=== PATIENT | female | born 1985 | race Hispanic/Latino ===

== ENCOUNTER 2021-07-23 22:35 | Emergency (ER) | payer SELFPAY ==
[~2021-07-23] VITALS: Ht 154.9 cm; Wt 70.8 kg
[2021-07-23] MEDS ORDERED: KETOROLAC TROMETHAMINE 30 MG/ML VIAL IV STA (23:17)
[2021-07-23] MEDS ORDERED: ONDANSETRON HCL INJ 2MG/ML 2ML 2 MG/ML VIAL IV STA (23:17)
[2021-07-23] MEDS ORDERED: SODIUM CHLORIDE 0.9% 1000ML 1,000 ML IV SCH (23:30)
[2021-07-23] MEDS ORDERED: IOPAMIDOL 370 MG/ML 200 ML INFUS..BTL INJ ONE (23:48)
[2021-07-23] MEDS ORDERED: SODIUM CHLORIDE 0.9% 50ML 50 ML ONE (23:48)
[2021-07-23] MEDS ORDERED: KETOROLAC TROMETHAMINE 30 MG/ML VIAL ONE (23:51)
[2021-07-23] MEDS ORDERED: SODIUM CHLORIDE 0.9% 1000ML 1,000 ML ONE (23:51)
[2021-07-23] MEDS ORDERED: ONDANSETRON HCL INJ 2MG/ML 2ML 2 MG/ML VIAL ONE (23:51)
[2021-07-24] MEDS ORDERED: LEVOFLOXACIN750 MG PO (01:28)
[2021-07-24] MEDS ORDERED: IBUPROFEN600 MG PO (01:29)
[2021-07-24] MEDS ORDERED: ONDANSETRON ODT4 MG PO (01:32)
== END 2021-07-24 01:45 | disposition home or self-care (01) ==
LOC: FSED 22:40
DX: J18.9 Pneumonia, unspecified organism (principal); R10.31 Right lower quadrant pain; D64.9 Anemia, unspecified; R11.0 Nausea; R19.7 Diarrhea, unspecified; Z86.16 Personal history of COVID-19
CPT/HCPCS: 74177; 80053; 85025; 99284; J1885; J2405; J7030; Q9967

== ENCOUNTER 2021-08-19 14:52 | Emergency (ER) | payer SELFPAY ==
[~2021-08-19] VITALS: Ht 157.5 cm; Wt 70.6 kg
[~2021-08-19 14:52] MED LIST: IBUPROFEN600 MG PO; LEVOFLOXACIN750 MG PO; ONDANSETRON ODT4 MG PO
[2021-08-19] MEDS ORDERED: PREDNISONE 20 MG TAB PO STA (15:01)
[2021-08-19] MEDS ORDERED: EPINEPHRINE HCL 1:1000 1ML 1 MG/ML AMP INJ STA (15:01)
[2021-08-19] MEDS ORDERED: FAMOTIDINE 20 MG TAB PO ONE (15:15)
[2021-08-19] MEDS ORDERED: PREDNISONE 20 MG TAB ONE (15:20)
[2021-08-19] MEDS ORDERED: EPINEPHRINE HCL 1:1000 1ML 1 MG/ML AMP ONE (15:20)
[2021-08-19] MEDS ORDERED: FAMOTIDINE 20 MG TAB ONE (15:20)
[2021-08-19] MEDS ORDERED: FAMOTIDINE 20 MG/2 ML VIAL IV STA (15:48)
[2021-08-19] MEDS ORDERED: ONDANSETRON HCL INJ 2MG/ML 2ML 2 MG/ML VIAL IV STA (15:48)
[2021-08-19] MEDS ORDERED: SODIUM CHLORIDE 0.9% 1000ML 1,000 ML IV STA (15:48)
[2021-08-19] MEDS ORDERED: KETOROLAC TROMETHAMINE 30 MG/ML VIAL ONE (15:58)
[2021-08-19] MEDS ORDERED: SODIUM CHLORIDE 0.9% 1000ML 1,000 ML ONE (15:59)
[2021-08-19] MEDS ORDERED: IOPAMIDOL 370 MG/ML 200 ML INFUS..BTL INJ ONE (16:02)
[2021-08-19] MEDS ORDERED: SODIUM CHLORIDE 0.9% 50ML 50 ML ONE (16:02)
[2021-08-19] MEDS ORDERED: PREDNISONE50 MG PO (17:10)
[2021-08-19] MEDS ORDERED: EPINEPHRIN0.3 MG/0.3 IM (17:10)
[2021-08-19] MEDS ORDERED: PEPCID20 MG PO (17:10)
== END 2021-08-19 17:33 | disposition home or self-care (01) ==
LOC: FSED 14:55
DX: T78.40XA Allergy, unspecified, initial encounter (principal); R10.31 Right lower quadrant pain
CPT/HCPCS: 74177; 80053; 81003; 81025; 85025; 96372; 96374; 96375; 99284; J0171; J1885; J2405; J7030; J7512; Q9967

== ENCOUNTER 2022-09-12 07:21 | Emergency (ER) | payer OTHER ==
[~2022-09-12] VITALS: Ht 157.5 cm; Wt 70.3 kg
[~2022-09-12 07:21] MED LIST changes: +EPINEPHRIN0.3 MG/0.3 IM; +PEPCID20 MG PO; +PREDNISONE50 MG PO
[2022-09-12] MEDS ORDERED: SODIUM CHLORIDE 0.9% 1000ML 1,000 ML IV STA (07:29)
[2022-09-12 07:45] LABS: BASOPHILS % 0.4 % (0.0-1.0); EOSINOPHILS # (AUTO) 0.1 (0.0-0.4); EOSINOPHILS % 1.1 % (0.0-6.0); HEMATOCRIT 37.1 % (34.2-44.1); HEMOGLOBIN 11.3 g/dL (12.0-16.0); LYMPHOCYTES # (AUTO) 3.3 (1.0-3.2); LYMPHOCYTES % 32.1 % (18.0-39.1); MEAN CORPUSCULAR HEMOGLOBIN 23.6 pg (28-32); MEAN CORPUSCULAR HGB CONC 30.5 g/dL (31-35); MEAN CORPUSCULAR VOLUME 77.6 fL (81-99); MONOCYTES # (AUTO) 0.9 (0.2-0.8); MONOCYTES % 9.1 % (4.4-11.3); NEUTROPHILS # (AUTO) 5.8 (2.1-6.9); PLATELET COUNT 349 x10e3/uL (140-360); RED BLOOD COUNT 4.78 x10e6/uL (3.6-5.1); RED CELL DISTRIBUTION WIDTH 15.9 % (11.7-14.4)
[2022-09-12] MEDS ORDERED: Morphine 4mg INJECTION 4 MG/ML INJ IV STA (08:15)
[2022-09-12] MEDS ORDERED: ONDANSETRON HCL INJ 2MG/ML 2ML 2 MG/ML VIAL IV STA (08:15)
[2022-09-12 08:19] LABS: ALBUMIN 4.2 g/dL (3.5-5.0); ALBUMIN/GLOBULIN RATIO 1.2 (0.8-2.0); ANION GAP 15.4 mmol/L (8-16); CALCIUM 8.7 mg/dL (8.4-10.2); CREATININE, SERUM 0.8 mg/dL (0.57-1.11); POTASSIUM 3.4 mmol/L (3.5-5.1)
[2022-09-12 08:30] LABS: AMPHETAMINES SCREEN,URINE NEGATIVE (NEGATIVE); BENZODIAZEPINES SCREEN,URINE NEGATIVE (NEGATIVE); PHENCYCLIDINE SCREEN,URINE NEGATIVE (NEGATIVE)
[2022-09-12 08:31] LABS: CLARITY,URINE TURBID (CLEAR); COLOR,URINE YELLOW (YELLOW); KETONES,URINE TRACE (NEGATIVE); LEUKOCYTE ESTERASE ,URINE NEGATIVE (NEGATIVE); NITRITE,URINE NEGATIVE (NEGATIVE); PROTEIN,URINE DIPSTICK 1+ (NEGATIVE)
[2022-09-12 08:32] LABS: URINE UROBILINOGEN 0.2 mg/dL (0.2 - 1)
[2022-09-12 08:35] LABS: BACTERIA,URINE FEW /HPF; EPITHELIAL CELLS,URINE FEW /LPF; MUCUS,URINE MODERATE (RARE)
[2022-09-12] MEDS ORDERED: IOPAMIDOL 370 MG/ML 100 ML INFUS..BTL INJ ONE ×2 (08:51→10:13)
[2022-09-12] MEDS ORDERED: ACETAMINOPHEN-1 EAC4 PO (10:37)
== END 2022-09-12 10:56 | disposition home or self-care (01) ==
LOC: ER 07:26
DX: R10.30 Lower abdominal pain, unspecified (principal); N83.201 Unspecified ovarian cyst, right side
CPT/HCPCS: 36415; 74177; 80053; 80307; 80320; 81001; 81025; 85025; 99284; J2270; J2405; J7030; Q9967

== ENCOUNTER 2022-12-29 22:31 | Emergency (ER) | payer OTHER ==
[~2022-12-29] VITALS: Ht 157.5 cm; Wt 70.3 kg
[~2022-12-29 22:31] MED LIST changes: +ACETAMINOPHEN-1 EAC4 PO
[2022-12-29] MEDS ORDERED: MEDROL4 M2 PO (23:56)
[2022-12-30] MEDS ORDERED: FAMOTIDINE 20 MG/2 ML VIAL IV STA (00:01)
[2022-12-30] MEDS ORDERED: METHYLPREDNISOLONE SOD SUCC 125 MG/2ML VIAL ONE (00:05)
[2022-12-30] MEDS ORDERED: FAMOTIDINE 20 MG/2 ML VIAL IV ONE (00:06)
[2022-12-30] MEDS ORDERED: METHYLPREDNISOLONE SOD SUCC 125 MG/2ML VIAL IV ONE (00:15)
== END 2022-12-30 01:13 | disposition home or self-care (01) ==
LOC: ER 22:50
DX: R60.9 Edema, unspecified (principal); T78.40XA Allergy, unspecified, initial encounter
CPT/HCPCS: 99283; J2930

== ENCOUNTER 2023-01-20 08:46 | Emergency (ER) | payer OTHER ==
[~2023-01-20] VITALS: Ht 157.5 cm; Wt 70.3 kg
[~2023-01-20 08:46] MED LIST changes: +MEDROL4 M2 PO
[2023-01-20] MEDS ORDERED: SODIUM CHLORIDE 0.9% 1000ML 1,000 ML IV STA (09:05)
[2023-01-20] MEDS ORDERED: KETOROLAC TROMETHAMINE 30 MG/ML VIAL IV STA (09:07)
[2023-01-20] MEDS ORDERED: FENTANYL CITRATE/PF 100MCG/2 ML INJ IV PRN (09:15)
[2023-01-20] MEDS ORDERED: ONDANSETRON HCL INJ 2MG/ML 2ML 2 MG/ML VIAL IV PRN (09:15)
[2023-01-20 09:26] LABS: BASOPHILS % 0.4 % (0.0-1.0); EOSINOPHILS # (AUTO) 0.2 (0.0-0.4); EOSINOPHILS % 1.8 % (0.0-6.0); HEMATOCRIT 33.6 % (34.2-44.1); HEMOGLOBIN 9.9 g/dL (12.0-16.0); LYMPHOCYTES # (AUTO) 2.5 (1.0-3.2); LYMPHOCYTES % 25.8 % (18.0-39.1); MEAN CORPUSCULAR HEMOGLOBIN 21.1 pg (28-32); MEAN CORPUSCULAR HGB CONC 29.5 g/dL (31-35); MEAN CORPUSCULAR VOLUME 71.5 fL (81-99); MONOCYTES # (AUTO) 0.9 (0.2-0.8); NEUTROPHILS # (AUTO) 6.1 (2.1-6.9); NEUTROPHILS % 62.7 % (38.7-80.0); PLATELET COUNT 380 x10e3/uL (140-360); RED CELL DISTRIBUTION WIDTH 18.3 % (11.7-14.4)
[2023-01-20 09:44] LABS: CLARITY,URINE CLEAR (CLEAR); COLOR,URINE YELLOW (YELLOW); KETONES,URINE NEGATIVE (NEGATIVE); LEUKOCYTE ESTERASE ,URINE NEGATIVE (NEGATIVE); NITRITE,URINE NEGATIVE (NEGATIVE); PROTEIN,URINE DIPSTICK NEGATIVE (NEGATIVE)
[2023-01-20 09:45] LABS: URINE UROBILINOGEN 1 mg/dL (0.2 - 1)
[2023-01-20 09:49] LABS: ALBUMIN 3.7 g/dL (3.5-5.0); ALBUMIN/GLOBULIN RATIO 0.9 (0.8-2.0); ANION GAP 13.2 mmol/L (8-16); CALCIUM 9.1 mg/dL (8.4-10.2); CREATININE, SERUM 0.83 mg/dL (0.57-1.11); POTASSIUM 3.2 mmol/L (3.5-5.1)
[2023-01-20 09:50] LABS: BACTERIA,URINE FEW /HPF; EPITHELIAL CELLS,URINE MODERATE /LPF; RBC,URINE 21-50 /HPF (0-5); WBC,URINE (MAN) 0-5 /HPF (0-5)
[2023-01-20] MEDS ORDERED: IOPAMIDOL 370 MG/ML 100 ML INFUS..BTL INJ ONE (10:50)
[2023-01-20] MEDS ORDERED: ULTRAM 50MG50 MG PO (11:49)
== END 2023-01-20 12:14 | disposition home or self-care (01) ==
LOC: ER 08:53
DX: R10.30 Lower abdominal pain, unspecified (principal); N70.11 Chronic salpingitis
CPT/HCPCS: 36415; 74177; 80053; 81001; 83690; 84702; 85025; 99284; J1885; J7030; Q9967

== ENCOUNTER 2024-08-22 10:19 | Emergency (ER) | payer BC, OTHER ==
[~2024-08-22] VITALS: Ht 157.5 cm; Wt 70.3 kg
[~2024-08-22 10:19] MED LIST changes: +ULTRAM 50MG50 MG PO
[2024-08-22 10:57] LABS: BASOPHILS % 0.4 % (0.0-1.0); EOSINOPHILS # (AUTO) 0.1 (0.0-0.4); EOSINOPHILS % 1.2 % (0.0-6.0); HEMATOCRIT 34.4 % (34.2-44.1); HEMOGLOBIN 9.6 g/dL (12.0-16.0); LYMPHOCYTES # (AUTO) 1.8 (1.0-3.2); LYMPHOCYTES % 24.9 % (18.0-39.1); MEAN CORPUSCULAR HEMOGLOBIN 18.3 pg (28-32); MEAN CORPUSCULAR HGB CONC 27.9 g/dL (31-35); MEAN CORPUSCULAR VOLUME 65.6 fL (81-99); MONOCYTES # (AUTO) 0.6 (0.2-0.8); MONOCYTES % 8.2 % (4.4-11.3); NEUTROPHILS # (AUTO) 4.7 (2.1-6.9); NEUTROPHILS % 65.2 % (38.7-80.0); PLATELET COUNT 402 x10e3/uL (140-360); RED BLOOD COUNT 5.24 x10e6/uL (3.6-5.1); RED CELL DISTRIBUTION WIDTH 20.8 % (11.7-14.4); WHITE BLOOD COUNT 7.22 x10e3/uL (4.8-10.8)
[2024-08-22] MEDS: ONDANSETRON HCL INJ 2MG/ML 2ML 2 MG/ML VIAL IV STA (10:59)
[2024-08-22] MEDS: SODIUM CHLORIDE 0.9% 1000ML 1,000 ML IV ONE (11:00)
[2024-08-22 11:22] LABS: ALBUMIN 4.1 g/dL (3.5-5.0); ALBUMIN/GLOBULIN RATIO 1.2 (0.8-2.0); ANION GAP 10.9 mmol/L (8-16); BILIRUBIN,TOTAL 0.3 mg/dL (0.2-1.2); CALCIUM 9.2 mg/dL (8.4-10.2); CREATININE, SERUM 0.78 mg/dL (0.57-1.11); POTASSIUM 3.9 mmol/L (3.5-5.1); TOTAL PROTEIN 7.6 g/dL (6.5-8.1)
[2024-08-22 13:58] VITALS: PULSE 55; RESP 16; TEMP 98.2; O2SAT 100
== END 2024-08-22 14:13 | disposition home or self-care (01) ==
LOC: ER 10:26
DX: R42 Dizziness and giddiness (principal); D64.9 Anemia, unspecified; R94.31 Abnormal electrocardiogram [ECG] [EKG]
CPT/HCPCS: 36415; 80053; 84702; 85025; 93005; 99283; J2405; J7030

== ENCOUNTER 2024-10-07 21:47 | Emergency (ER) | payer BC ==
[~2024-10-07] VITALS: Ht 157.5 cm; Wt 70.3 kg
[2024-10-07] MEDS ORDERED: Sodium Chloride 0.9% 50ML Bag ONE (22:01)
[2024-10-07] MEDS ORDERED: IOPAMIDOL 370 MG/ML 100 ML INFUS..BTL INJ ONE (22:01)
[2024-10-07 22:21] LABS: BASOPHILS % 0.5 % (0.0-1.0); EOSINOPHILS # (AUTO) 0.2 (0.0-0.4); EOSINOPHILS % 2.4 % (0.0-6.0); HEMATOCRIT 37.9 % (34.2-44.1); HEMOGLOBIN 11.8 g/dL (12.0-16.0); LYMPHOCYTES # (AUTO) 3.1 (1.0-3.2); MEAN CORPUSCULAR HEMOGLOBIN 24.2 pg (28-32); MEAN CORPUSCULAR HGB CONC 31.1 g/dL (31-35); MEAN CORPUSCULAR VOLUME 77.8 fL (81-99); MONOCYTES # (AUTO) 0.8 (0.2-0.8); MONOCYTES % 9.2 % (4.4-11.3); NEUTROPHILS # (AUTO) 4.7 (2.1-6.9); NEUTROPHILS % 52.7 % (38.7-80.0); PLATELET COUNT 310 x10e3/uL (140-360); RED BLOOD COUNT 4.87 x10e6/uL (3.6-5.1); WHITE BLOOD COUNT 8.88 x10e3/uL (4.8-10.8)
[2024-10-07 22:34] LABS: AMPHETAMINES SCREEN,URINE NEGATIVE (NEGATIVE); BENZODIAZEPINES SCREEN,URINE NEGATIVE (NEGATIVE); CANNABINOIDS SCREEN,URINE NEGATIVE (NEGATIVE); COCAINE SCREEN,URINE NEGATIVE (NEGATIVE); METHADONE SCREEN, URINE NEGATIVE (NEGATIVE); OPIATES SCREEN,URINE NEGATIVE (NEGATIVE); PHENCYCLIDINE SCREEN,URINE NEGATIVE (NEGATIVE)
[2024-10-07 22:35] LABS: PREGNANCY TEST, URINE NEGATIVE (NEGATIVE)
[2024-10-07 22:38] LABS: ALANINE AMINOTRANSFERASE 21 IU/L (0-55); ALBUMIN 4.1 g/dL (3.5-5.0); ALBUMIN/GLOBULIN RATIO 1.3 (0.8-2.0); ALKALINE PHOSPHATASE 61 IU/L (40-150); ANION GAP 13.4 mmol/L (8-16); BILIRUBIN,TOTAL 0.1 mg/dL (0.2-1.2); BLOOD UREA NITROGEN 14 mg/dL (7-26); BUN/CREATININE RATIO 17 (6-25); CALCIUM 9.5 mg/dL (8.4-10.2); CARBON DIOXIDE 24 mmol/L (22-29); CHLORIDE 104 mmol/L (98-107); CREATINE KINASE 51 IU/L (29-168); CREATININE, SERUM 0.84 mg/dL (0.57-1.11); EST GLOMERULAR FILTRATION RATE 92 ML/MIN (>=60); GLUCOSE 97 mg/dL (74-118); SODIUM 138 mmol/L (136-145); TOTAL PROTEIN 7.3 g/dL (6.5-8.1)
[2024-10-07 22:39] LABS: POTASSIUM 3.4 mmol/L (3.5-5.1)
[2024-10-07] MEDS: TRAMADOL HCL 50 MG TAB PO STA (22:48)
[2024-10-07 22:54] LABS: TROPONIN I < 0.001 ng/mL (0-0.300)
[2024-10-08 01:15] VITALS: PULSE 56; RESP 16; TEMP 98.5; O2SAT 98
== END 2024-10-08 01:23 | disposition home or self-care (01) ==
LOC: ER 21:54
DX: R00.2 Palpitations (principal); R07.89 Other chest pain
CPT/HCPCS: 36415; 71260; 80053; 80307; 81025; 82550; 83690; 83880; 84484; 85025; 99284; Q9967; 93005

== ENCOUNTER 2025-06-06 15:17 | Emergency (ER) | payer SELFPAY ==
[~2025-06-06] VITALS: Ht 160 cm; Wt 70.3 kg
[~2025-06-06 15:17] MED LIST changes: +AMOX TR-K CLV1 EAC2 PO; +DICYCLOMINE HCL20 MG PO
[2025-06-06 16:13] VITALS: TEMP 98
[2025-06-06] MEDS ORDERED: TRUVADA 200 MG1 EACH PO (22:55)
[2025-06-06] MEDS ORDERED: ONDANSETRON ODT4 MG PO (22:55)
[2025-06-06] MEDS ORDERED: TIVICAY50 MG PO (22:55)
[2025-06-06 22:58] VITALS: PULSE 78; RESP 18
[2025-06-06] MEDS ORDERED: LIDOCAINE HCL 1% LOCAL INJ 20 ML VIAL ONE (23:26)
[2025-06-06] MEDS: CEFTRIAXONE 500 MG VIAL IM STA (23:40)
[2025-06-06] MEDS: METRONIDAZOLE 500 MG TAB PO ONE (23:42)
[2025-06-06] MEDS: AZITHROMYCIN 250 MG TAB PO ONE (23:43)
[2025-06-06] MEDS: ONDANSETRON HCL 4 MG ORAL DISINTEGRATING TAB PO STA (23:43)
[2025-06-06] MEDS: TENOFOVIR DISOPROXIL FUMARATE PO ONE (23:47)
[2025-06-06] MEDS: EMTRICITABINE PO ONE (23:47)
[2025-06-06] MEDS: RALTEGRAVIR PO ONE (23:47)
[2025-06-06 23:59] VITALS: BP 124/77; PULSE 79; RESP 16; O2SAT 99
== END 2025-06-07 00:02 | disposition home or self-care (01) ==
LOC: ER 16:34
DX: S63.592A Other specified sprain of left wrist, initial encounter (principal); S09.90XA Unspecified injury of head, initial encounter; W22.09XA Striking against other stationary object, initial encounter; Y92.89 Other specified places as the place of occurrence of the external cause; T76.21XA Adult sexual abuse, suspected, initial encounter
CPT/HCPCS: 29125; 70450; 70486; 72125; 73110; 99284; J0696; J2003; Q0162